=== PATIENT | male | born 1995 | race Caucasian/White ===

== ENCOUNTER 2023-01-21 20:59 | Emergency (ER) | payer SELFPAY ==
[2023-01-21] MEDS ORDERED: Fluorescein 1 MG Ophth Strip EYERT ONE (23:04)
[2023-01-21] MEDS ORDERED: Tetracaine HCl/PF 0.5% 4 ML Bottle ONE (23:11)
[2023-01-21] MEDS ORDERED: Sodium Chloride 0.9% 500 ML ONE (23:28)
== END 2023-01-22 00:11 | disposition home or self-care (01) ==
LOC: JD.ED 20:59
DX: H57.89 Other specified disorders of eye and adnexa (principal)
CPT/HCPCS: 99283; J7040; 99282; J3490